=== PATIENT | female | born 1990 | race Caucasian/White ===

== ENCOUNTER 2024-02-05 11:30 | Outpatient (RCR) | payer MEDICAID, SELFPAY ==
--- NOTE | 2024-01-28 15:37 | PT.OIERPT ---
PT OP Initial Eval Patient Information Outpatient Physical Therapy Treatment Date: 01/28/24 Visit Reasons: LOW BACK PAIN Medical Diagnosis: M51.16 Treatment Dx #1: LBP Start of Care: 01/28/24 Date of Onset: 10 yrs ago Smoking Status Smoking Status: Never smoker Initial Assessment Subjective: Pt is 33 yr old female who reports chronic LBP with pain radiating into L LE. Increased pain with prolonged sitting and if she has LE up it goes numb. Less LBP since 2 epidurals in L/S. Pt reports limitations with lifting heavy, bending. Her back feels stiff. PMH: none reported Imaging: Xray of L/S Moderate degenerative disc disease L4-L5, L5-S1 Pt goal: more flexibility in LB Objective: Trunk ArOM: ? B SB 50% of normal with pain ? Extension: 20% with pain around L4-5, L5-S1 ? Flexion: 10 from floor with LBP ? B rotation: 60% with pain ? TTP: moderate paraspinals L5-S1 ? Neuro: B SLR: negative Assessment: Pt presents with trunk flexion sensitivity and overlying myofascial pain ? and TTP around L5-S1 consistent with ? lower lumbar DDD with radiculopathy. Pt requires skilled therapy in order to decrease ? pain and improve sitting/standing tolerance and has poor/fair rehab potential. Short Term and Manager Custom Goals 1. Ind with HEP ? 2. Improved sitting/standing tolerance to 30 minutes with <=4/10 LBP ? 3. Decreased lower paraspinal TTP from mod to min 4. Improved HH chore tolerance to at least 30 minutes with <=3/10 LBP and no ? increase in LE ssx Treatment Plan ? 1. Manual therapy ? 2. Therex ? 3. Modalities as indicated, moist heat, ice, estim, mechanical traction Frequency and Duration: 1-2x a week for 6 weeks Certification Dates: 01/28/24 to 04/25/24 Procedure Charges OP PT Eval Mod Complex 30 minutes: Yes
--- NOTE | 2024-02-05 13:33 | PT.ODAYNRPT ---
PT Outpatient Daily Note OP Daily Note Outpatient Physical Therapy Treatment Date: 02/05/24 Visit Reasons: LOW BACK PAIN Subjective: Pt reports low back pain is present and feels pain down L glute at times. Objective: Please see flow sheet for ther ex list. Assessment: Pt instructed on repeated lumbar extension, pt encouraged to continue for HEP. Plan: Continue with POC. Length of Time (minutes) of Treatment: 30 Minutes Procedure Charges Therapeutic Exercise 30 minutes: Yes
== END 2024-02-16 23:59 | disposition home or self-care (01) ==
LOC: CPTX 11:30
PROVIDERS: PCP Family Medicine; Referring Provider Family Medicine; Visit Provider Family Medicine
DX: M51.16 Intervertebral disc disorders with radiculopathy, lumbar region (principal)
CPT/HCPCS: 97110; 97162

== ENCOUNTER 2024-03-01 11:30 | Outpatient (RCR) | payer MEDICAID, SELFPAY ==
--- NOTE | 2024-02-22 13:11 | PT.ODAYNRPT ---
PT Outpatient Daily Note OP Daily Note Outpatient Physical Therapy Treatment Date: 02/22/24 Visit Reasons: low back pain Subjective: Relief with prone extension HEP Objective: See FS for therex Assessment: Good response to prone extension progression to relieve LBP Plan: Continue per POC Length of Time (minutes) of Treatment: 30 Minutes Procedure Charges Therapeutic Exercise 30 minutes: Yes
--- NOTE | 2024-03-01 13:40 | PT.ODAYNRPT ---
PT Outpatient Daily Note OP Daily Note Outpatient Physical Therapy Treatment Date: 03/01/24 Visit Reasons: low back pain Subjective: LBP Relief with prone extension HEP Objective: See FS for therex Assessment: Good response to prone extension progression to relieve LBP Plan: Continue per POC Length of Time (minutes) of Treatment: 30 Minutes Procedure Charges Therapeutic Exercise 30 minutes: Yes
== END 2024-03-18 23:59 | disposition home or self-care (01) ==
LOC: CPTX 11:30
PROVIDERS: PCP Family Medicine; Referring Provider Family Medicine; Visit Provider Family Medicine
DX: M51.16 Intervertebral disc disorders with radiculopathy, lumbar region (principal)
CPT/HCPCS: 97110

== ENCOUNTER 2024-03-03 14:26 | Outpatient (AMB) | payer MEDICAID, SELFPAY ==
[2024-03-03 14:32] VITALS: BP 143/72; PULSE 80; RESP 18; TEMP 36.6; O2SAT 97; BMI 33.0
--- NOTE | 2024-03-03 14:32 | PD.GSCLVISIT ---
Vital Signs - [facility] 03/03/24 14:32 Height 1.68 m Height Method Stated Weight 93.015 kg Weight Measurement Method Standing Scale BMI 33.0 BP 143/72 H Blood Pressure Source Automatic Cuff Blood Pressure Location Left Upper Arm Position Sitting Respiration 18 Pulse 80 Pulse Source Monitor Temp 97.8 F Temp Source Temporal Artery Scan Pulse Oximetry (%) 97 Oxygen Delivery Method Room Air Med/Allergies Allergies & Medications Allergies No Known Allergies Allergy (Verified 03/03/24 14:34) Medication Reconciliation diazepam 5 mg tablet (Valium) 5 mg PO QDAY PRN muscle spasm #3 tabs 01/24/19 [Rx Confirmed 03/03/24] naproxen 500 mg tablet 500 mg PO BID #30 tabs 01/24/19 [Rx Confirmed 03/03/24] MA Intake Visit Data Collection New Patient or Established: Established Patient (seen at [facility] within 3 years) Seen by Clinical Staff ONLY (RN/MA): No Reason for Visit:: FISTULA F/U Pain Present Currently: No 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 Pt states in August she underwent colonoscopy to evaluate her symptomatic hemorrhoid and after that developed a perianal abscess. She received three rounds of antibiotics and the abscess spontaneously drained. Since then she has noted almost continuous perianal drainage; the area has briefly healed 2-3 times but the symptoms recurred and she is currently having daily drainage. At baseline she is constipated, her BMs are hard and require straining. She admits she is drinking less water than usual lately and she takes fiber pills but not regularly. She states her colonoscopy was otherwise normal PMH: Scoliosis, degenerative disk disease PSHx: Epidural injection for back pain, colonoscopy Meds: None Allergies: NKDA Family hx: no malignancy in first degree relatives Social hx: Nonsmoker ROS Review of Systems Systems Reviewed: All systems reviewed, normal except as documented Objective/Exam General General Appearance: alert, cooperative and well groomed Resp Respiratory exam: Absent respiratory distress Rectal Rectal exam: Present other (right external perianal fistula opening approx 1cm from anal verge, external hemorrhoids) Assessment & Plan Diagnosis / Problem List (1) Anal fistula: Status: Acute Assessment & Plan: 33F presenting with perianal fistula. I encouraged her to increase water intake and initiate metamucil fiber in powder form. For her fistula I explained that surgery will be in two stages, first with seton placement and then when drainage decreases she will have definitive surgery (fistulotomy vs LIFT depending on anatomy at that time). I explained risks including bleeding, infection, pain, difficulty urinating, incontinence and recurrence/persistence of fistula. All questions were answered and pt expressed understanding Office Procedures GNS Level of Care Nursing/Assessment Patient Status: Established Patient Nursing Assessment/Reassesment: Medication Reconciliation, Update PMH in EMR and Vital Signs Coordination of Care: Complex Care and Chronic Disease 1-5, Consent,records obtained, informed consent, Education Simp Pt/Fam, Results/Orders obtained and Staff clarify orders Established Patient Charge Established Patient Point Assignment: 90 Established Patient Point Charge: EP Level 3 (80-115) Patient Portal Questionaires Social History Tobacco History Smoking Status: Never smoker Domestic Abuse History Do You Feel Safe at Home: Yes Review of Systems Report any current symptoms Only answer those that you have currently: Past Medical History Past Medical History Have you ever been diagnosed with any of the following:
== END 2024-03-03 15:01 | disposition home or self-care (01) ==
LOC: HODSRG 14:26
PROVIDERS: PCP Family Medicine; Referring Provider Family Medicine; Supervising Provider Surgery; Visit Provider Surgery
DX: K60.30 Anal fistula, unspecified (principal)
CPT/HCPCS: 99213; G0463

== ENCOUNTER 2024-03-09 08:50 | Day surgery (SDC) | payer MEDICAID, SELFPAY ==
[2024-03-08 09:20] VITALS: BMI 32.9
[2024-03-08 10:50] LABS: Basophils # (Auto) 0.1 Thou/mm3 (0.0-0.2); Basophils % (Auto) 1 % (0-2.5); Eosinophils # (Auto) 0.2 Thou/mm3 (0.0-0.5); Eosinophils % (Auto) 3 % (0-10); Hematocrit 39.9 % (36.0-46.0); Hemoglobin 13.7 g/dL (12.0-16.0); Immature Granulocytes % (Auto) 0 % (0-0); Immature Granulocytes Auto 0.03 Thou/mm3 (0.00-0.00); Lymphocytes # (Auto) 2.4 Thou/mm3 (1.0-4.8); Lymphocytes % (Auto) 27 % (10-50); Mean Corpuscular HGB Conc 34.3 g/dl (31.0-37.0); Mean Corpuscular Hemoglobin 32.5 pg (25.0-35.0); Mean Corpuscular Volume 95 fL (80-100); Monocytes # (Auto) 0.6 Thou/mm3 (0.0-0.8); Monocytes % (Auto) 7 % (0-12); Neutrophils # (Auto) 5.5 Thou/mm3 (1.8-7.7); Neutrophils % (Auto) 63 % (37-80); Nucleated Red Blood Cell % 0 /100 WBC (0); Platelet Count 300 Thou/mm3 (140-440); RDW Standard Deviation 41.8 fL (36.4-46.3); Red Blood Count 4.22 Miln/mm3 (4.00-5.20); White Blood Count 8.8 Thou/mm3 (3.6-11.0)
[2024-03-08 10:59] LABS: Partial Thromboplastin Time 26.5 Seconds (22.0-36.0)
[2024-03-08 11:00] LABS: Anion Gap 8 (7-16); BUN/Creatinine Ratio 16 Ratio (12-20); Blood Urea Nitrogen 11 mg/dL (9-23); Calcium 9.8 mg/dL (8.3-10.6); Carbon Dioxide 27.5 mMol/L (20.0-31.0); Chloride 103 mMol/L (98-107); Creatinine (Component) 0.7 mg/dL (0.6-1.3); Estimated Creatinine Clearance 129.8 mL/min (>60); Glucose 102 mg/dL (74-106); Osmolality,Calculated 275 (275-295); Potassium 4.2 mMol/L (3.4-5.1); Sodium 138 mMol/L (136-145); eGFR > 60 See Note
[2024-03-08 11:05] LABS: HCG,Qualitative Serum Negative
[2024-03-09] VITALS (8 sets, daily range): BP systolic 103–132; BP diastolic 42–85; PULSE 48–73; RESP 12–18; TEMP 36.2–36.9; O2SAT 97–100; BMI 32.5
--- NOTE | 2024-03-09 09:30 | CHAP ---
Visited with patient giving encouragement and prayer.
[2024-03-09] MEDS: RINGERS LACTATED 1000 ML 1,000 ML 20 ML IV (09:35)
--- NOTE | 2024-03-09 10:09 | PD.SUROPNT ---
Date of Procedure 03/09/24 Pre Op Diagnosis Perianal fistula Post Op Diagnosis Same Procedure Examination under anesthesia, placement of seton Findings Left perianal fistula with external opening approximately 1 cm from anal verge Procedure Description After discussion of risks and benefits, patient was brought to the operating room, SCDs were placed and general anesthesia was induced. She was placed in lithotomy position with proper padding and was prepped and draped in the usual sterile fashion. After timeout a JENNIFER was performed which was normal. The external opening of patient's known perianal fistula was visualized at the left perianal region approximately 1 cm from the anal verge. I cannulated this external opening with a probe and the tract was easily identified and found to connect to the anal canal. A vessel loop was tied to the probe using a 0 silk tie, and the probe was removed from the tract bringing the vessel loop with it. The vessel loop was then tied to itself using 3 interrupted silk ties. A left pudendal nerve block was performed as well as a local block for total of 30 cc of half percent Marcaine. Patient was returned to supine position and extubated without complication. She was brought to PACU in stable condition Pathology / specimen None Estimated Blood Loss 5 Surgeon Abena Lerner MD Surgical Staff Operation Date: 03/09/24 11:15 Case Staff Anesthesiologist: Saulo Conteh
--- NOTE | 2024-03-09 10:12 | PD.SURDS ---
Planned Discharge Date 03/09/24 DS: Providers Provider Primary care physician: Vadim Mckeon PA-C Attending Provider on Admission: Abena Lerner MD Attending Provider on DC: Abena Lerner MD Discharging Provider: Abena Lerner MD Diagnosis Discharge Diagnosis (1) Anal fistula: Status: Acute Problem List Completed Was Problem List Reviewed/Reconciled?: Yes Exam Vital Signs Temp Pulse Resp BP Pulse Ox 98.5 F 73 18 132/85 H 98 03/09/24 09:31 03/09/24 09:31 03/09/24 09:31 03/09/24 09:31 03/09/24 09:31 Discharge Plan Plan Patient Disposition: HOME (Self Care) Prescriptions/Referrals Prescriptions/Med Rec: New oxycodone-acetaminophen [Percocet] 5-325 mg tablet 1 tab PO Q6H MDD 6 tabs PRN (Reason: pain) Qty: 30 0RF Rx Instructions: Pt underwent surgery 03/09/24 Referrals: Vadim Mckeon PA-C [Primary Care Provider] - Abena Lerner MD [Physician] - (You will receive a phone call to confirm a follow-up appointment with me in 6 weeks) Patient/Caregiver Discharge Instructions Other Discharge Activity Instructions:: Avoid constipation and diarrhea You may take ibuprofen in between doses of Percocet as needed for pain May resume sitz baths as needed starting 03/10 If you develop worsening pain, difficulty urinating, or fever please seek care in ER Education Materials: Eating a High-Fiber Diet, Taking a Sitz Bath, ED Anal Fistula Print Language: Liberian Stand Alone Forms: Hermel[employer] Award Info., Patient Portal Info Letter Discharge Order Discharge Orders: Discharge (Routine); Ordered 03/09/24 Ordered By: Abena Lerner Results Results: Laboratory Laboratory results: results reviewed Procedures Procedure Date 03/09/24 Procedures Examination under anesthesia, placement of seton
--- NOTE | 2024-03-09 10:13 | SUR.PHASEI ---
1013: Pt. arrived with oral airway in place, vitals stable, breathing unlabored, no signs of distress, dressing to buttocks has scant drainage, report received from Julian KEVIN and MD Conteh.
--- NOTE | 2024-03-09 11:13 | SUR.PHASEII ---
1113: Pt. AAOx4, vitals stable, breathing unlabored, no complaint of pain or nausea, dressing to buttocks has scant amount of blood, pt. tolerated sips of water well, pt. ambulated to wheelchair with steady gait and no assist, no complications. Gave discharge instructions to the pt. and her ride, both verbalized understanding and had no further questions. Pt. left with all personal belongings.
== END 2024-03-09 11:13 | disposition home or self-care (01) ==
PROVIDERS: Anesthesiology; PCP Family Medicine; Referring Provider Surgery; Visit Provider Surgery
PROC: (CPT 46020; principal; 2024-03-09 11:00)
DX: K60.30 Anal fistula, unspecified (principal)
CPT/HCPCS: 46020; 36415; 80048; 84703; 85025; 85610; 85730; A4217; A4649; J1100; J1885; J2250; J2405; J2704; J3010; J3490; J7120

== ENCOUNTER 2024-04-18 10:09 | Outpatient (AMB) | payer MEDICAID, SELFPAY ==
--- NOTE | 2024-04-18 10:24 | GSCOFFNT_ITS ---
Vital Signs - Gen Srg Clinic 04/18/24 10:25 Height 1.68 m Height Method Stated Weight 92.675 kg Weight Measurement Method Standing Scale BMI 32.8 BP 124/77 Blood Pressure Source Automatic Cuff Blood Pressure Location Left Upper Arm Position Sitting Respiration 19 Pulse 58 L Pulse Source Monitor Temp 97.6 F Temp Source Temporal Artery Scan Pulse Oximetry (%) 98 Oxygen Delivery Method Room Air Med/Allergies Allergies & Medications Allergies No Known Allergies Allergy (Verified 04/18/24 10:27) Medication Reconciliation oxycodone-acetaminophen 5 mg-325 mg tablet (Percocet) 1 tab PO Q6H PRN pain #30 tabs 03/09/24 [Rx Confirmed 04/18/24] MA Intake Visit Data Collection New Patient or Established: Established Patient (seen at [facility] within 3 years) Seen by Clinical Staff ONLY (RN/MA): No Reason for Visit:: FISTULA F/U Pain Present Currently: No Supervisor Lathing Required: No PCP or OBGYN visit in last 3 months: Yes Hx Now: No Do You Feel Safe at Home: Yes Authorities Contacted: N/A Smoking Status Smoking Status: Former smoker Immunization / Flu Flu Vaccine in the Last 12 Months: No Flu Vaccine Exclusion Criteria: No Exclusion Criteria Past Medical History Past Medical History NEUROLOGIC: Negative Neurological Disorders or Seizures CARDIAC: Negative Cardiac Disorders or Congestive Heart Failure RESPIRATORY: Negative Chronic Obstructive Pulmonary Disease (COPD) GASTROINTESTINAL: Positive Gastrointestinal Disorders (anal fistula); Negative Hepatitis GENITOURINARY: Negative Genitourinary Disorders or Renal Disease REPRODUCTIVE: Positive Previous Pregnancies (1) MUSCULOSKELETAL: Positive Degenerative Disk Disease and Scoliosis ENDOCRINE: Negative Endocrine Disorders, Diabetes Mellitus Type 1 or Diabetes Mellitus Type 2 HEMATOLOGIC: Negative Blood Disorders OTHER HISTORY: Positive Chicken Pox; Negative Hospitalization, Autoimmune Disease, Shingles, Blood Transfusions, Blood Transfusion Reaction, Anesthesia Reactions or Cancer Family History FAMILY HISTORY: Positive Family Gastrointestinal Problems and Family Surgery; Negative Family Psychiatric Problems, Family Respiratory Disorders, Family Cardiac Disorders, Family Cancer or Family Anesthesia Reaction Social History SMOKING STATUS: Smoking status: Former smoker ALCOHOL: Alcohol Intake: Current HOUSING: Housing: Apartment [facility] HPI Narrative 33F who presented with symptomatic perianal fistula s/p EUA with seton placement 03/09/24 here for planned follow up. Pt reports feeling well overall, she has no pain and although she is having daily drainage it is decreased compared to before surgery. She is continuing to work on her BMs by drinking plenty of water and is taking fiber, having less straining than before ROS Review of Systems Systems Reviewed: All systems reviewed, normal except as documented Objective/Exam General General Appearance: alert, cooperative and well groomed Resp Respiratory exam: Absent respiratory distress Assessment & Plan Diagnosis / Problem List (1) Anal fistula: Status: Acute Assessment & Plan: 33F who presented with perianal fistula s/p EUA with seton placement 03/09/24, recovering well overall. As she is continuing to have daily drainage I recommended leaving the seton in place for now, will follow up in 6 weeks Office Procedures GNS Level of Care Nursing/Assessment Patient Status: Established Patient Nursing Assessment/Reassesment: Medication Reconciliation, Update PMH in EMR and Vital Signs Coordination of Care: Complex Care and Chronic Disease 1-5, Consent,records obtained, informed consent, Education Simp Pt/Fam, Results/Orders obtained and Staff clarify orders Established Patient Charge Established Patient Point Assignment: 90 Established Patient Point Charge: EP Level 3 (80-115) Patient Portal Questionaires Social History Living Situation History Housing: Apartment Tobacco History Smoking Status: Former smoker Alcohol History Alcohol Intake: Current Domestic Abuse History Do You Feel Safe at Home: Yes Review of Systems Report any current symptoms Only answer those that you have currently: Past Medical History Past Medical History Have you ever been diagnosed with any of the following: Neurological Problems Seizures: No Cardiology Problems Congestive Heart Failure: No Respiratory Problems Chronic Obstructive Pulmonary Disease (COPD): No Stomache/Intestinal Problems Hepatitis: No Genital/Urinary Problems Renal Disease: No Reproductive Problems Previous Pregnancies: Yes (1) Musculoskeletal Problems Degenerative Disk Disease: Yes Scoliosis: Yes Endocrine Problems Diabetes Mellitus Type 1: No Diabetes Mellitus Type 2: No Other Problems Hospitalization: No Autoimmune Disease: No Shingles: No Blood Transfusions: No Blood Transfusion Reaction: No Anesthesia Reactions: No Chicken Pox: Yes Cancer: No
[2024-04-18 10:25] VITALS: BP 124/77; PULSE 58; RESP 19; TEMP 36.4; O2SAT 98; BMI 32.8
== END 2024-04-18 10:41 | disposition home or self-care (01) ==
LOC: HODSRG 10:09
PROVIDERS: PCP Family Medicine; Referring Provider Family Medicine; Supervising Provider Surgery; Visit Provider Surgery
DX: K60.30 Anal fistula, unspecified (principal); Z96.89 Presence of other specified functional implants
CPT/HCPCS: 99213; G0463

== ENCOUNTER 2024-07-06 10:16 | Outpatient (AMB) | payer MEDICAID, SELFPAY ==
[2024-07-06 10:42] VITALS: BP 115/77; PULSE 56; RESP 1; TEMP 36.7; O2SAT 98; BMI 32.2
--- NOTE | 2024-07-06 10:42 | GSCOFFNT_ITS ---
Vital Signs - Gen Srg Clinic 07/06/24 10:42 Height 1.68 m Height Method Stated Weight 90.974 kg Weight Measurement Method Standing Scale BMI 32.2 BP 115/77 Blood Pressure Source Automatic Cuff Blood Pressure Location Left Upper Arm Position Sitting Respiration 1 L Pulse 56 L Pulse Source Monitor Temp 98.1 F Temp Source Temporal Artery Scan Pulse Oximetry (%) 98 Oxygen Delivery Method Room Air Med/Allergies Allergies & Medications Allergies No Known Allergies Allergy (Verified 07/06/24 10:43) Medication Reconciliation oxycodone-acetaminophen 5 mg-325 mg tablet (Percocet) 1 tab PO Q6H PRN pain #30 tabs 03/09/24 [Rx Confirmed 07/06/24] MA Intake Visit Data Collection New Patient or Established: Established Patient (seen at [facility] within 3 years) Seen by Clinical Staff ONLY (RN/MA): No Reason for Visit:: FOLLOW UP FISTULA Pain Present Currently: No PCP or OBGYN visit in last 3 months: Yes Hx Now: No Do You Feel Safe at Home: Yes Authorities Contacted: N/A Smoking Status Smoking Status: Former smoker Immunization / Flu Flu Vaccine in the Last 12 Months: No Flu Vaccine Exclusion Criteria: No Exclusion Criteria Past Medical History Past Medical History NEUROLOGIC: Negative Neurological Disorders or Seizures CARDIAC: Negative Cardiac Disorders or Congestive Heart Failure RESPIRATORY: Negative Chronic Obstructive Pulmonary Disease (COPD) GASTROINTESTINAL: Positive Gastrointestinal Disorders (anal fistula); Negative Hepatitis GENITOURINARY: Negative Genitourinary Disorders or Renal Disease REPRODUCTIVE: Positive Previous Pregnancies (1) MUSCULOSKELETAL: Positive Degenerative Disk Disease and Scoliosis ENDOCRINE: Negative Endocrine Disorders, Diabetes Mellitus Type 1 or Diabetes Mellitus Type 2 HEMATOLOGIC: Negative Blood Disorders OTHER HISTORY: Positive Chicken Pox; Negative Hospitalization, Autoimmune Disease, Shingles, Blood Transfusions, Blood Transfusion Reaction, Anesthesia Reactions or Cancer Family History FAMILY HISTORY: Positive Family Gastrointestinal Problems and Family Surgery; Negative Family Psychiatric Problems, Family Respiratory Disorders, Family Cardiac Disorders, Family Cancer or Family Anesthesia Reaction Social History SMOKING STATUS: Smoking status: Former smoker ALCOHOL: Alcohol Intake: Current HOUSING: Housing: Apartment [facility] HPI Narrative 33F who presented with symptomatic perianal fistula s/p EUA with seton placement 03/09/24 here for planned follow up. Pt reports she is having significantly less drainage compared to before, now only having drops of fluid come out over a several-hour period. Her pain is well controlled and she continues to have soft BMs without any straining ROS Review of Systems Systems Reviewed: All systems reviewed, normal except as documented Objective/Exam General General Appearance: alert, cooperative and well groomed Resp Respiratory exam: Absent respiratory distress Rectal Rectal exam: Present other (left perianal fistula with minimal purulent drainage at external opening approx 1cm from anal verge) Assessment & Plan Diagnosis / Problem List (1) Anal fistula: Status: Acute Assessment & Plan: 33F who presented with symptomatic perianal fistula s/p EUA with seton placement 03/09/24 here for planned follow up, recovering well now with significantly decreased drainage. As her symptoms have improved I explained that we can pursue definitive surgery which will mean fistulotomy. I explained risks of incontinence, bleeding, infection and fistula recurrence. All questions were answered and pt agrees to proceed Office Procedures GNS Level of Care Nursing/Assessment Patient Status: Established Patient Nursing Assessment/Reassesment: Medication Reconciliation, Update PMH in EMR and Vital Signs Coordination of Care: Complex Care and Chronic Disease 1-5, Consent,records obtained, informed consent, Education Simp Pt/Fam, Results/Orders obtained and Staff clarify orders Established Patient Charge Established Patient Point Assignment: 90 Established Patient Point Charge: EP Level 3 (80-115) Patient Portal Questionaires Social History Living Situation History Housing: Apartment Tobacco History Smoking Status: Former smoker Alcohol History Alcohol Intake: Current Domestic Abuse History Do You Feel Safe at Home: Yes Review of Systems Report any current symptoms Only answer those that you have currently: Past Medical History Past Medical History Have you ever been diagnosed with any of the following: Neurological Problems Seizures: No Cardiology Problems Congestive Heart Failure: No Respiratory Problems Chronic Obstructive Pulmonary Disease (COPD): No Stomache/Intestinal Problems Hepatitis: No Genital/Urinary Problems Renal Disease: No Reproductive Problems Previous Pregnancies: Yes (1) Musculoskeletal Problems Degenerative Disk Disease: Yes Scoliosis: Yes Endocrine Problems Diabetes Mellitus Type 1: No Diabetes Mellitus Type 2: No Other Problems Hospitalization: No Autoimmune Disease: No Shingles: No Blood Transfusions: No Blood Transfusion Reaction: No Anesthesia Reactions: No Chicken Pox: Yes Cancer: No
== END 2024-07-06 11:13 | disposition home or self-care (01) ==
LOC: HODSRG 10:16
PROVIDERS: PCP Family Medicine; Referring Provider Family Medicine; Supervising Provider Surgery; Visit Provider Surgery
DX: K60.30 Anal fistula, unspecified (principal)
CPT/HCPCS: 99213; G0463

== ENCOUNTER 2024-07-27 08:30 | Day surgery (SDC) | payer MEDICAID, SELFPAY ==
[2024-07-26 08:21] VITALS: BMI 32.5
--- NOTE | 2024-07-26 08:33 | EKG_ITS ---
[facility] Test Date: 2024-07-26 Pat Name: LANDEN CHO Department: Room: - Gender: Female Manager Medical Writing: DARLENE : 1990 Requested By: Cameron Savage Order Number: [id number] Reading MD: Cameron Savage Measurements Intervals [place] Rate: 53 P: 45 ME: 152 QRS: 64 QRSD: 81 T: 37 QT: 393 QTc: 369 Interpretive Statements SINUS BRADYCARDIA NONSPECIFIC T-WAVE ABNORMALITY No previous ECG available for comparison /store/S0/[id number].pdf
[2024-07-26 09:39] LABS: Basophils # (Auto) 0.1 Thou/mm3 (0.0-0.2); Basophils % (Auto) 1 % (0-2.5); Eosinophils # (Auto) 0.3 Thou/mm3 (0.0-0.5); Eosinophils % (Auto) 3 % (0-10); Hematocrit 39.3 % (36.0-46.0); Hemoglobin 13.8 g/dL (12.0-16.0); Immature Granulocytes % (Auto) 0 % (0-0); Immature Granulocytes Auto 0.01 Thou/mm3 (0.00-0.00); Lymphocytes # (Auto) 2.3 Thou/mm3 (1.0-4.8); Lymphocytes % (Auto) 29 % (10-50); Mean Corpuscular HGB Conc 35.1 g/dl (31.0-37.0); Mean Corpuscular Hemoglobin 33.3 pg (25.0-35.0); Mean Corpuscular Volume 95 fL (80-100); Monocytes # (Auto) 0.7 Thou/mm3 (0.0-0.8); Monocytes % (Auto) 8 % (0-12); Neutrophils # (Auto) 4.8 Thou/mm3 (1.8-7.7); Neutrophils % (Auto) 59 % (37-80); Nucleated Red Blood Cell % 0 /100 WBC (0); Platelet Count 289 Thou/mm3 (140-440); RDW Standard Deviation 43.6 fL (36.4-46.3); Red Blood Count 4.14 Miln/mm3 (4.00-5.20); White Blood Count 8.1 Thou/mm3 (3.6-11.0)
[2024-07-26 09:47] LABS: Anion Gap 9 (7-16); BUN/Creatinine Ratio 14 Ratio (12-20); Blood Urea Nitrogen 11 mg/dL (9-23); Carbon Dioxide 27.3 mMol/L (20.0-31.0); Chloride 105 mMol/L (98-107); Creatinine (Component) 0.8 mg/dL (0.6-1.3); Estimated Creatinine Clearance 111.9 mL/min (>60); Glucose 110 mg/dL (74-106); Osmolality,Calculated 281 (275-295); Partial Thromboplastin Time 26.7 Seconds (22.0-36.0); Prothrombin Time 10.7 Seconds (9.0-12.2); Sodium 141 mMol/L (136-145); eGFR > 60 See Note
[2024-07-26 09:52] LABS: HCG,Qualitative Serum Negative
--- NOTE | 2024-07-26 15:27 | SUR.PREOP ---
Pt notified to come in at 0830 tomorrow.
[2024-07-27] VITALS (9 sets, daily range): BP systolic 105–142; BP diastolic 48–91; PULSE 55–76; RESP 14–20; TEMP 36.4–37.2; O2SAT 98–100; BMI 32.4
--- NOTE | 2024-07-27 09:15 | CHAP ---
Patient was with her and son. She was anxious for the prayer and the whole family participated.
--- NOTE | 2024-07-27 12:11 | PD.SUROPNT ---
Date of Procedure 07/27/24 Pre Op Diagnosis Perianal fistula Post Op Diagnosis Same Procedure Fistulotomy Findings Left posterior perianal fistula approximately 1 cm from anal verge Procedure Description After discussion of risks and benefits, patient was brought to the operating room, SCDs were placed and general anesthesia with LMA was induced. She was placed in lithotomy position with proper padding and was prepped and draped in usual sterile fashion. After timeout a JENNIFER was performed and then the Ponce retractor was placed into the anal canal to visualize the known fistula. A probe was placed through the external opening of the left perianal fistula and easily placed through the anterior opening of the perianal fistula. The seton was cut with scissors and removed, and the skin and tissue above the fistula probe was divided with electrocautery. The external opening of the perianal fistula was excised with electrocautery and both areas were curetted and cauterized to promote fistula healing. Cautery was also used for hemostasis which was reinforced with Surgicel. A left pudendal nerve block was performed as well as a local block for total of 30 cc of half percent Marcaine. Patient was returned to supine position and extubated without complication. She was brought to PACU in stable condition Pathology / specimen None Estimated Blood Loss 20 Surgeon Abena Lerner MD Surgical Staff Operation Date: 07/27/24 10:45 <No data on this case meets the specified criteria>
--- NOTE | 2024-07-27 12:14 | ESDS_ITS ---
Planned Discharge Date 07/27/24 DS: Providers Provider Primary care physician: Vadim Mckeon PA-C Attending Provider on Admission: Abena Lerner MD Attending Provider on DC: Abena Lerner MD Discharging Provider: Abena Lerner MD Diagnosis Discharge Diagnosis (1) Anal fistula: Status: Acute Problem List Completed Was Problem List Reviewed/Reconciled?: Yes Exam Vital Signs Temp Pulse Resp BP Pulse Ox 97.9 F 57 L 14 131/48 H 100 07/27/24 08:45 07/27/24 08:45 07/27/24 08:45 07/27/24 08:45 07/27/24 08:45 Discharge Plan Plan Patient Disposition: HOME (Self Care) Prescriptions/Referrals Prescriptions/Med Rec: No Action No Known Home Medications Referrals: Vadim Mckeon PA-C [Primary Care Provider] - Abena Lerner MD [Physician] - (You will receive a phone call to confirm a follow-up appointment with me in 6 weeks) Patient/Caregiver Discharge Instructions Other Discharge Activity Instructions:: Avoid constipation and diarrhea Take colace as needed if you develop constipation from Percocet You may take sitz baths as needed for pain, bleeding and swelling Sit in comfortably warm water up to 15 minutes at a time, three times a day and/or after bowel movements Your wound is covered with Surgicel gauze and antibiotic ointment. It is okay to remove these when you use the bathroom for the first time If you develop worsening pain, fever, or difficulty urinating please seek care in ER Education Materials: Discharge Instructions for ..., Taking a Sitz Bath Print Language: Pashto Stand Alone Forms: Hermel[employer] Award Info., Patient Portal Info Letter Discharge Order Discharge Orders: Discharge (Routine); Ordered 07/27/24 Ordered By: Abena Lerner Results Results: Laboratory Laboratory results: results reviewed Procedures Procedure Date 07/27/24 Procedures Fistulotomy
--- NOTE | 2024-07-27 12:17 | SUR.PHASEI ---
1217 Patient arrived to recovery drowsy and talking with staff, breathing unlabored, vital signs stable, denies pain, dressing intact to buttock; triple antibiotic ointment, abd, mesh underwear, no bleeding noted, denies nausea, report received from Evie KEVIN/Julian KEVIN and Dr. Savage.
--- NOTE | 2024-07-27 12:45 | SUR.PHASEII ---
1245 Report given to Gilda Pope RN
[2024-07-27] MEDS: fentaNYL CIT INJ 50 mCg/ML AMP 2ML IVP (13:10)
--- NOTE | 2024-07-27 13:41 | SUR.PHASEII ---
1245: pt awake, alert, able to follow commands, breathing unlabored, dressing to buttock clean, dry, and intact, report from Gilda Abel RN 1250: pt tolerating oral fluids without difficulty swallowing or n/v 1323: discharge instructions given with significant other Júnior at bedside, both pt and Júnior verbalize understanding of discharge instructions, VS stable, pt denies pain 1341: pt able to dress self and ambulate to wheelchair with steady gait, dressing to buttock clean, dry, and intact, pt discharged via wheelchair with all belonigings and copies of discharge paperwork.
== END 2024-07-27 13:41 | disposition home or self-care (01) ==
PROVIDERS: PCP Family Medicine; Referring Provider Surgery; Visit Provider Surgery
PROC: (CPT 46270; principal; 2024-07-27 10:30)
DX: K60.30 Anal fistula, unspecified (principal); Z01.810 Encounter for preprocedural cardiovascular examination
CPT/HCPCS: 46270; 36415; 80048; 84703; 85025; 85610; 85730; 93005; A4217; A4649; J0131; J1100; J2704; J2765; J3010; J3490; A9270

== ENCOUNTER 2025-01-09 08:59 | Outpatient (AMB) | payer MEDICAID, SELFPAY ==
--- NOTE | 2025-01-09 09:12 | GSCOFFNT_ITS ---
Vital Signs - [facility] 01/09/25 09:13 Height 1.68 m Height Method Measured Weight 89.131 kg Weight Measurement Method Standing Scale BMI 31.6 BP 128/86 H Blood Pressure Source Automatic Cuff Blood Pressure Location Left Upper Arm Position Sitting Respiration 18 Pulse 71 Pulse Source Monitor Temp 97.1 F Temp Source Temporal Artery Scan Pulse Oximetry (%) 96 Oxygen Delivery Method Room Air Med/Allergies Allergies & Medications Allergies No Known Allergies Allergy (Verified 01/09/25 09:14) Medication Reconciliation hydrocortisone acetate 25 mg rectal suppository (Anusol-HC) 25 mg SC QHS #24 ea 01/09/25 [Rx] MA Intake Visit Data Collection New Patient or Established: Established Patient (seen at [facility] within 3 years) Seen by Clinical Staff ONLY (RN/MA): No Reason for Visit:: BLEEDING FROM INCISION Pain Present Currently: Yes Pain Scale Used: Quiros-Escobar/Numerical Cementer Helper Required: No PCP or OBGYN visit in last 3 months: Yes Hx Now: No Do You Feel Safe at Home: Yes Authorities Contacted: N/A Smoking Status Smoking Status: Never smoker Immunization / Flu Flu Vaccine in the Last 12 Months: Yes Flu Vaccine Exclusion Criteria: Already Received Past Medical History Past Medical History NEUROLOGIC: Negative Neurological Disorders or Seizures CARDIAC: Positive Cardiac Disorders (palpitations x1 had stress for 3 days); Negative Congestive Heart Failure RESPIRATORY: Negative Chronic Obstructive Pulmonary Disease (COPD) GASTROINTESTINAL: Positive Gastrointestinal Disorders (has a fistula after colonoscopy) and Obesity; Negative Hepatitis GENITOURINARY: Negative Genitourinary Disorders or Renal Disease REPRODUCTIVE: Positive Previous Pregnancies (1) MUSCULOSKELETAL: Positive Degenerative Disk Disease and Scoliosis ENDOCRINE: Negative Endocrine Disorders, Diabetes Mellitus Type 1 or Diabetes Mellitus Type 2 HEMATOLOGIC: Negative Blood Disorders OTHER HISTORY: Positive Chicken Pox; Negative Hospitalization, Autoimmune Disease, Shingles, Blood Transfusions, Blood Transfusion Reaction, Anesthesia Reactions or Cancer Family History FAMILY HISTORY: Positive Family Cardiac Disorders, Family Gastrointestinal Problems and Family Surgery; Negative Family Psychiatric Problems, Family Respiratory Disorders, Family Cancer or Family Anesthesia Reaction Social History SMOKING STATUS: Smoking status: Never smoker ALCOHOL: Alcohol Intake: Current HOUSING: Housing: Apartment HPI HPI Narrative 34F who presented with a perianal fistula s/p seton placement 02/2024 followed by fistulotomy 07/2024 here for follow up. Pt reports she had been doing well overall with no drainage, however she recently had an injection into her upper back for pain and after that noticed rectal bleeding which prompted her to seek care. She denies any perianal pain or itching and has not noted any external hemorrhoids. She offers that she has been drinking more alcohol lately and feels that the bleeding seems to correlate with that as it does affect her BMs. Pt is not currently using any remedies for hemorrhoids ROS Review of Systems Systems Reviewed: All systems reviewed, normal except as documented Objective/Exam General General Appearance: alert, cooperative and well groomed Resp Respiratory exam: Absent respiratory distress Rectal Rectal exam: Present normal inspection and other (normal JENNIFER, internal hemorrhoids seen on anoscopy) Assessment & Plan Diagnosis / Problem List (1) Internal hemorrhoids: Status: Acute Assessment & Plan: 34F who presented with a perianal fistula s/p seton placement 02/2024 followed by fistulotomy 07/2024 here for follow up, with signs and symptoms of internal hemorrhoids. I provided an informative handout for how to manage her BMs as well as how to take sitz baths and will prescribe anusol suppositories. All questions were answered and pt is agreeable to following up in 6 weeks Office Procedures GNS Level of Care Nursing/Assessment Patient Status: Established Patient Nursing Assessment/Reassesment: Medication Reconciliation, Update PMH in EMR and Vital Signs Coordination of Care: Complex Care and Chronic Disease 1-5, Education Complex Pt/Fam, Consent,records obtained, informed consent, Results/Orders obtained and Staff clarify orders Established Patient Charge Established Patient Point Assignment: 95 Established Patient Point Charge: EP Level 3 (80-115) Patient Portal Questionaires Social History Living Situation History Housing: Apartment Tobacco History Smoking Status: Never smoker Alcohol History Alcohol Intake: Current Domestic Abuse History Do You Feel Safe at Home: Yes Review of Systems Report any current symptoms Only answer those that you have currently: Past Medical History Past Medical History Have you ever been diagnosed with any of the following: Neurological Problems Seizures: No Cardiology Problems Congestive Heart Failure: No Respiratory Problems Chronic Obstructive Pulmonary Disease (COPD): No Stomache/Intestinal Problems Hepatitis: No Obesity: Yes Genital/Urinary Problems Renal Disease: No Reproductive Problems Previous Pregnancies: Yes (1) Musculoskeletal Problems Degenerative Disk Disease: Yes Scoliosis: Yes Endocrine Problems Diabetes Mellitus Type 1: No Diabetes Mellitus Type 2: No Other Problems Hospitalization: No Autoimmune Disease: No Shingles: No Blood Transfusions: No Blood Transfusion Reaction: No Anesthesia Reactions: No Chicken Pox: Yes Cancer: No
[2025-01-09 09:13] VITALS: BP 128/86; PULSE 71; RESP 18; TEMP 36.2; O2SAT 96; BMI 31.6
== END 2025-01-09 10:05 | disposition home or self-care (01) ==
LOC: HODSRG 08:59
PROVIDERS: PCP Family Medicine; Referring Provider Family Medicine; Supervising Provider Surgery; Visit Provider Surgery
DX: K64.8 Other hemorrhoids (principal)
CPT/HCPCS: 99213; G0463